=== PATIENT | female | born 1955 | race Caucasian/White ===

== ENCOUNTER 2016-07-23 15:59 | Emergency (ER) | payer SELFPAY ==
--- NOTE | 2016-07-23 18:16 | RAD ---
INDICATION: Left arm injury COMPARISON: None TECHNIQUE: AP, lateral, and oblique views were obtained. FINDINGS: There is no acute fracture. There are small dystrophic or vascular calcifications in the upper extremity. IMPRESSION: NO ACUTE BONY FINDINGS.
[2016-07-23 19:02] VITALS: BP 126/77
--- NOTE | 2016-07-23 19:13 | UC ---
Upper Extremity HPI - HPI Summary HPI Summary: 1500 PM, WHILE AT WORK, WAS LIFTING OVERHEAD AND FELT PAIN IN LEFT UPPER ARM. PAIN IN BICEPS MUSCLE. NO PREVIOUS INJURY. NO KNOWN DEFORMITY. PAIN WITH FLEXING ARM - History of Current Complaint Chief Complaint: UCUpperExtremity Stated Complaint: ARM INJURY Time Seen by Provider: 07/23/16 17:50 Hx Obtained From: Patient Onset/Duration: Sudden Onset, Lasting Hours, Still Present Severity Initially: Moderate Severity Currently: Mild Location Of Pain: Is Discrete @ - DELTOID AND BICEPS LEFT ARM Character: Dull, Aching, Spasmodic Aggravating Factor(s): Movement, Lifting, Flexion, Extension Alleviating Factor(s): Elevation, Rest Associated Signs And Symptoms: Negative: Swelling, Redness, Numbness/Tingling Related History: Occupational Injury, Dominant Hand Right - Risk Factors DVT Risk Factors: Negative Septic Arthritis Risk Factor: Negative - Allergies/Home Medications Allergies/Adverse Reactions: Allergies Allergy/AdvReac Type Severity Reaction Status Date / Time No Known Allergies Allergy Verified 07/23/16 16:13 Home Medications: Home Medications Canagliflozin (NF) [Invokana (NF)] 07/23/16 [History] Dicyclomine CAP* [Bentyl CAP*] 07/23/16 [History Confirmed 07/23/16] Insulin GLARGINE(*) [Lantus(*)] 07/23/16 [History] Levothyroxine TAB* [Synthroid 125 MCG TAB*] 07/23/16 [History] Metformin HCl [Metformin HCl ER] 07/23/16 [History] PMH/Surg Hx/FS Hx/Imm Hx Previously Healthy: Yes Endocrine History Of: Reports: Diabetes - TYPE II, Thyroid Disease - Surgical History Surgical History: None - Family History Known Family History: Negative: Other - NO JOINT LAXITY - Social History Occupation: Employed Full-time Lives: With Family Alcohol Use: Rare Substance Use Type: None Smoking Status (MU): Never Smoked Tobacco Review of Systems Constitutional: Negative Skin: Negative Eyes: Negative ENT: Negative Respiratory: Negative Cardiovascular: Negative Gastrointestinal: Negative Genitourinary: Negative Motor: Negative Neurovascular: Negative Musculoskeletal: Arthralgia, Myalgia Neurological: Negative Psychological: Negative All Other Systems Reviewed And Are Negative: Yes Physical Exam Triage Information Reviewed: Yes Appearance: Well-Appearing, No Pain Distress, Well-Nourished Vital Signs: Initial Vital Signs Temp 98.9 F 07/23/16 16:10 Pulse 67 07/23/16 16:10 Resp 18 07/23/16 16:10 BP 138/68 07/23/16 16:10 Pulse Ox 99 07/23/16 16:10 Vital Signs Reviewed: Yes Eye Exam: Normal ENT Exam: Normal Dental Exam: Normal Neck exam: Normal Neck: Positive: Supple, Nontender, No Lymphadenopathy. Negative: Nuchal Rigidity, Tenderness @, Enlarged Nodes @ Respiratory Exam: Normal Respiratory: Positive: Chest non-tender, Lungs clear, Normal breath sounds, No respiratory distress, No accessory muscle use Cardiovascular Exam: Normal Cardiovascular: Positive: RRR, No Murmur, Pulses Normal Abdominal Exam: Normal Musculoskeletal: Positive: ROM Intact, No Edema, Strength Limited @ - LEFT ARM, Other: - TENDER TO PALPATION OF LEFT BICEPS MUSCLE AND BICEPS TENDON; NO DEFORMITY NOTED Psychological Exam: Normal Skin Exam: Normal Upper Extremity Course/Dx - Differential Dx/Diagnosis Differential Diagnosis/HQI/PQRI: Fracture (Closed), Strain, Sprain, Other - TENDON RUPTURE Provider Diagnoses: LEFT BICEPS TENDONITIS - Physician Notification/Consults Instructed by Provider To: Have Pt Call For Appt. Discharge - Discharge Plan Condition: Stable Disposition: HOME Patient Education Materials: Tendinitis (ED), Tendon Rupture (ED) Forms: *Work Release Referrals: [facility] [Outside] [facility] [Outside] Rohan Hughes MD [Medical Doctor] - No Primary Care Phys,NOPCP [Primary Care Provider] - Additional Instructions: PHYSICAL THERAPY REFERRAL: You have been prescribed physical therapy. Treatments may include stretching, exercise, application of heat or cold, and other modalities. After an injury, PT can reduce swelling and pain. In recovery, PT is used to restore mobility and strength. Your specific treatment goals are: ____X_ Reduction of Swelling (EGS, US, ice as needed) ___X__ Pain Reduction (EGS, US, ice as needed) TENS Pack Fitting and Instruction Wound Hydrotherapy ____X_ Preservation of Mobility ____X_ Roman Catholic of Mobility ___X__ Strength Roman Catholic ____X_ Work or Sports Hardening This instruction sheet also serves as your PHYSICAL THERAPY REFERRAL! Please take it with you to the therapist, so he/she will be aware of your diagnosis and treatment plan. You may see the physical therapist of your choice for these treatments, but may wish to check with your insurance to be sure the provider you select is covered. It's important to see the doctor to whom you have been referred for follow up.
== END 2016-07-23 19:00 | disposition home or self-care (01) ==
LOC: EDBD → UCEAST 15:59
DX: M75.22 Bicipital tendinitis, left shoulder (principal); E11.9 Type 2 diabetes mellitus without complications; E07.9 Disorder of thyroid, unspecified; Z79.4 Long term (current) use of insulin
CPT/HCPCS: 99202; G0463